=== PATIENT | male | born 1975 | race African-American/Black ===

== ENCOUNTER 2018-10-18 18:10 | Emergency (ER) | payer MEDICAID ==
[~2018-10-18] VITALS: Ht 167.6 cm; Wt 74.0 kg
[2018-10-18 18:25] VITALS: BP 128/79
== END 2018-10-18 20:30 | disposition left against medical advice (07) ==
LOC: ER 18:10
DX: R07.9 Chest pain, unspecified (principal); R06.02 Shortness of breath; Z53.21 Procedure and treatment not carried out due to patient leaving prior to being seen by health care provider
CPT/HCPCS: 93005